=== PATIENT | male | born 1965 | race Caucasian/White ===

== ENCOUNTER 2020-03-04 04:02 | Outpatient (CLI) | payer OTHER, SELFPAY ==
--- NOTE | 2020-03-04 | DI.CT_ITS ---
EXAM: CT TEMPORAL BONE WO CLINICAL HISTORY: CHRONIC DRAINAGE OTORRHEA OF LT EAR,H92.12 TECHNIQUE: COMPARISON: No exams were available for comparison FINDINGS: CT examination of the temporal bones was performed according to the usual protocol. On the right, ma stoid air cells are clear. Middle and inner ear structures appear normal. Normal anatomy internal a uditory ossicles and inner ear structures noted. On left there is opacification of mastoid air cells consistent with a chronic mastoiditis. Question some bony erosion of the mastoid adjacent to middle ear cavity. Erosion also present adjacent to mid dle cranial fossa. Significant effacement of internal auditory ossicles noted. No gross destruction or erosion of inner ear structures. Visualized orbital structures appear intact. Paranasal sinuses are clear. No additional calvarial a bnormality. No apparent mass lesion of the posterior fossa. IMPRESSION: Findings consistent with chronic left mastoiditis, opacification of middle ear cavity and apparent de struction of internal auditory ossicles, possible cholesteatoma. Possible erosion of mastoid into middle cranial fossa. Additional evaluation with MRI suggested.. RADIATION DOSE DELIVERED: 326.94mGy.cm Total DLP
== END 2020-03-04 04:22 ==
PROVIDERS: PCP Family Medicine; Visit Provider Otolaryngology
DX: H92.12 Otorrhea, left ear (principal)
CPT/HCPCS: 70480